=== PATIENT | male | born 1950 | race African-American/Black ===

== ENCOUNTER 2016-09-20 13:50 | Emergency (ER) | payer MEDICARE ==
[~2016-09-20] VITALS: Ht 188 cm; Wt 63.5 kg
[2016-09-20 14:30] LABS: EOSINOPHILS % (AUTO) 0.5 % (0.0-3.0); LYMPHOCYTES % (AUTO) 19.6 % (20.0-45.0); MEAN CORPUSCULAR HGB CONC 32.9 G/DL (32.0-36.0); MEAN CORPUSCULAR VOLUME 97 FL (80-99); MEAN PLATELET VOLUME 6.1 FL (6.5-10.1); MONOCYTES % (AUTO) 6.4 % (1.0-10.0); NEUTROPHILS % (AUTO) 72.5 % (45.0-75.0); PLATELET COUNT 187 K/UL (150-450); RED BLOOD COUNT 4.99 M/UL (4.70-6.10); WHITE BLOOD COUNT 5.7 K/UL (4.8-10.8)
[2016-09-20 14:39] LABS: INR 1.1 (0.9-1.1)
[2016-09-20 14:43] LABS: TROPONIN I < 0.30 ng/mL (<=0.30)
[2016-09-20 14:56] LABS: ALANINE AMINOTRANSFERASE 14 U/L (3-41); ALBUMIN/GLOBULIN RATIO 1.2 (1.0-2.7); ANION GAP 16 (5-15); ASPARTATE AMINO TRANSFERASE 34 U/L (5-40); CALCIUM 9.5 mg/dL (8.6-10.2); CARBON DIOXIDE 30 mEQ/L (20-30); CHLORIDE 89 mEQ/L (98-107); CREATININE 0.8 mg/dL (0.7-1.2); GLOMERULAR FILTRATION RATE > 60 mL/min (>60); HEMOLYSIS 17; POTASSIUM 3.6 mEQ/L (3.4-4.9); SODIUM 135 mEQ/L (135-145); TOTAL PROTEIN 7.9 g/dL (6.6-8.7)
--- NOTE | 2016-09-20 14:56 | Emergency Room Report ---
History of Present Illness General Chief Complaint: Generalized Weakness Source: Patient Present Illness HPI The patient was brought in by EMS after complaining weakness. BP was good supine, but dropped to 79 when he stood. He was dizzy with this. Apparently he's not been taking his diabetes medicine for at least 3 months. He 's not on insulin. He denies any pain in his body except for his left foot laterally. He denies any trauma there. There's been no fever or chills, no chest pain, no shortness of breath, no rashes, no vomiting diarrhea dysuria. No melena. No IBARRA. History of drinking a lot of alcohol. The last time he had severe drink was yesterday. He gets the shakes when he doesn't drink alcohol he denies any seizures. Apparently he was evicted from apartment 3 months ago and went to [place]. Found yesterday by sister and taken in. Drank last night. No SI HI. Allergies: Coded Allergies: No Known Allergies (Unverified , 09/20/16) Patient History Social History: Reports: alcohol use Social History Narrative from sisters house now (see HPI) Reviewed Nursing Documentation: PMH: Agreed, PSxH: Agreed Nursing Documentation-PMH Past Medical History: No History, Except For Hx Cardiac Problems: No - REGULAR ETOH USE Hx Diabetes: Yes Review of Systems All Other Systems: negative except mentioned in HPI Physical Exam Vital Signs Date Time Temp Pulse Resp B/P Pulse Ox O2 Delivery O2 Flow Rate FiO2 09/20/16 13:31 97 16 99/54 99 Room Air Sp02 EP Interpretation: reviewed, normal General Appearance: well appearing, no apparent distress, GCS 15 Head: normocephalic Eyes: bilateral eye PERRL, bilateral eye normal inspection ENT: dry mucus membranes Neck: supple Respiratory: lungs clear, normal breath sounds Cardiovascular #1: regular rate, rhythm Cardiovascular #2: 2+ radial (R) Gastrointestinal: normal inspection, normal bowel sounds, non tender, no mass, non-distended Musculoskeletal: back normal, gait/station normal, normal range of motion, tender - L lateral foot Neurologic: alert, oriented x3, motor strength/tone normal, DTRs symmetric, sensory intact, speech normal Psychiatric: mood/affect normal, no suicidal/homicidal ideation Skin: normal inspection, warm/dry Medical Decision Making Diagnostic Impression: Primary Impression: Dehydration Additional Impressions: Hyperglycemia Alcohol abuse ER Course Patient with weakness and hypotension with non-compliance and alcohol use. Ddx ; DKA, hyperglycemia, sepsis, AMI, electrolyte abnormalities, alcohol withdrawal , malnutrition amongst others. Emergent evaluation with EKG, CT, labs. Treatment with IV hydration and cardiac observation. EKG, CXR, CT unremarkable. Labs with slightly high H/H. Glucose 298. No evidence of infection. Improved with IV hydration. Ambulatory. No tremor. Discussed glucose control with patient and niece. Also discussed potential for alcohol withdrawal. Patient stable for outpatient observation and treatment. Laboratory Tests Test 09/20/16 14:00 09/20/16 15:20 White Blood Count 5.7 K/UL (4.8-10.8) Red Blood Count 4.99 M/UL (4.70-6.10) Hemoglobin 16.0 G/DL (14.2-18.0) Hematocrit 48.5 % (42.0-52.0) Mean Corpuscular Volume 97 FL (80-99) Mean Corpuscular Hemoglobin 32.0 PG (27.0-31.0) H Mean Corpuscular Hemoglobin Concent 32.9 G/DL (32.0-36.0) Red Cell Distribution Width 13.0 % (11.6-14.8) Platelet Count 187 K/UL (150-450) Mean Platelet Volume 6.1 FL (6.5-10.1) L Neutrophils (%) (Auto) 72.5 % (45.0-75.0) Lymphocytes (%) (Auto) 19.6 % (20.0-45.0) L Monocytes (%) (Auto) 6.4 % (1.0-10.0) Eosinophils (%) (Auto) 0.5 % (0.0-3.0) Basophils (%) (Auto) 1.0 % (0.0-2.0) Erythrocyte Sedimentation Rate 14 MM/HR (0-20) Prothrombin Time 11.0 SEC (9.30-11.50) Prothrombin Time INR 1.1 (0.9-1.1) PTT 25 SEC (23-33) Sodium Level 135 mEQ/L (135-145) Potassium Level 3.6 mEQ/L (3.4-4.9) Chloride Level 89 mEQ/L (98-107) L Carbon Dioxide Level 30 mEQ/L (20-30) Anion Gap 16 (5-15) H Blood Urea Nitrogen 9 mg/dL (7-23) Creatinine 0.8 mg/dL (0.7-1.2) Estimate Glomerular Filtration Rate > 60 mL/min (>60) Glucose Level 298 mg/dL (74-106) H Lactic Acid Level 1.30 mmol/L (0.66-2.22) Calcium Level 9.5 mg/dL (8.6-10.2) Total Bilirubin 1.2 mg/dL (0.0-1.2) Direct Bilirubin 0.4 mg/dL (0.1-0.3) H Aspartate Amino Transferase (AST) 34 U/L (5-40) Alanine Aminotransferase (ALT) 14 U/L (3-41) Alkaline Phosphatase 57 U/L (40-129) Total Creatine Kinase 391 U/L (38-174) H Troponin I < 0.30 ng/mL (<=0.30) Pro-B-Type Natriuretic Peptide 111 pg/mL (0-125) Total Protein 7.9 g/dL (6.6-8.7) Albumin 4.4 g/dL (3.5-5.2) Globulin 3.5 g/dL Albumin/Globulin Ratio 1.2 (1.0-2.7) Thyroid Stimulating Hormone (TSH) 0.818 uIU/mL (0.300-4.500) Urine Color Yellow Urine Appearance Clear Urine pH 8 (4.5-8.0) Urine Specific [place] 1.010 (1.005-1.035) Urine Protein Negative (NEGATIVE) Urine Glucose (UA) 4+ (NEGATIVE) H Urine Ketones 2+ (NEGATIVE) H Urine Occult Blood Negative (NEGATIVE) Urine Nitrite Negative (NEGATIVE) Urine Bilirubin Negative (NEGATIVE) Urine Urobilinogen 4 MG/DL (0.0-1.0) H Urine Leukocyte Esterase Negative (NEGATIVE) Urine Opiates Screen Negative (NEGATIVE) Urine Barbiturates Screen Negative (NEGATIVE) Phencyclidine (PCP) Screen Negative (NEGATIVE) Urine Amphetamines Screen Negative (NEGATIVE) Urine Benzodiazepines Screen Negative (NEGATIVE) Urine Cocaine Screen Negative (NEGATIVE) Urine Marijuana (THC) Screen Negative (NEGATIVE) EKG Diagnostic Results Rate: normal Rhythm: NSR ST Segments: no acute changes Rhythm Strip Diag. Results EP Interpretation: yes Rhythm: NSR, no PVC's, no ectopy Chest X-Ray Diagnostic Results EP Interpretation: Yes Findings: no consolidation, no effusion, no pneumothorax, no acute cardiopulmonary disease, other - copd Number of Views: 1 Last Vital Signs Date Time Temp Pulse Resp B/P Pulse Ox O2 Delivery O2 Flow Rate FiO2 09/20/16 16:31 75 20 125/80 99 Room Air Status: improved Disposition: HOME, SELF-CARE Condition: Improved Scripts Blood-Glucose Meter (ACCU-CHEK GUIDE MONITOR SYSTEM) 1 Each Each 1 EACH [facility] DAILY for diabetes, #1 Prov: Janak Vargas M.D. 09/20/16 Lancets (COMFORT LANCETS) 1 Each Each 1 EACH MC, #30 1 Refill Prov: Janak Vargas M.D. 09/20/16 Metformin Hcl* (METFORMIN HCL*) 500 Mg Tablet 500 MG ORAL TWICE A DAY, #60 TAB Prov: Janak Vargas M.D. 09/20/16 Referrals: NOT CHOSEN PETE/,REFERRING (PCP) Janak Vargas M.D. September 20, 2016 14:56
[2016-09-20 15:07] LABS: THYROID STIMULATING HORMONE 0.818 uIU/mL (0.300-4.500)
[2016-09-20 15:18] LABS: BILIRUBIN,DIRECT 0.4 mg/dL (0.1-0.3)
[2016-09-20 15:38] LABS: APPEARANCE,URINE CLEAR; KETONES,URINE 2+ (NEGATIVE); LEUKOCYTE ESTERASE ,URINE NEGATIVE (NEGATIVE); NITRITE,URINE NEGATIVE (NEGATIVE); PH,URINE 8 (4.5-8.0); PROTEIN,URINE NEGATIVE (NEGATIVE); UROBILINOGEN,URINE 4 MG/DL (0.0-1.0)
[2016-09-20 15:46] LABS: ERYTHROCYTE SEDIMENTATION RATE 14 MM/HR (0-20)
[2016-09-20 15:58] VITALS: BP 126/82
[2016-09-20] MEDS ORDERED: COMFORT LANCET1 EACH MC (16:09)
[2016-09-20] MEDS ORDERED: ACCU-CHEK GUID1 EAC1 MC (16:09)
[2016-09-20] MEDS ORDERED: METFORMIN HCL500 M1 ORAL (16:09)
[2016-09-20] MEDS ORDERED: metFORMIN 500mg tab ORAL SCH (16:30)
[2016-09-20 16:31] VITALS: BP 125/80
--- NOTE | 2016-09-22 08:47 | Diagnostic Imaging Report ---
Indication: Shortness of breath Technique: XRAY CHEST 1 V Comparison: None Findings: Cardiomediastinal silhouette is within normal limits. Atherosclerotic changes are seen. There is no consolidation. The lungs are hyperinflated. There are chronic appearing fracture deformities of the left clavicle and left ribs. Impression: No acute cardiopulmonary disease. Findings as above.
== END 2016-09-20 16:34 | disposition home or self-care (01) ==
LOC: EDBD 13:50 → EMR 14:00
DX: E86.0 Dehydration (principal); E11.65 Type 2 diabetes mellitus with hyperglycemia; F10.10 Alcohol abuse, uncomplicated; J44.9 Chronic obstructive pulmonary disease, unspecified
CPT/HCPCS: 36415; 71010; 80053; 80300; 81003; 82248; 82550; 83605; 83880; 84443; 84484; 85025; 85610; 85651; 85730; 87040; 93005; 96374; 96375; 99284; J2405